=== PATIENT | female | born 1965 | race Caucasian/White ===

== ENCOUNTER 2019-02-23 14:26 | Outpatient (CLI) | payer BC, SELFPAY ==
[2019-02-23 15:17] LABS: Abs Immature Grans 0.01 k/cumm (0.0-0.09); Absolute Basophil Count 0.03 k/cumm (0.0-0.2); Absolute Eosinophil Count 0.11 k/cumm (0.0-0.7); Absolute Neutrophil Count 3.55 k/cumm (1.2-6.7); Basophils % 0.5; Eosinophils % 1.7; HCT 37.8 % (36.0-46.0); Immature Grans % 0.2; Lymphocytes % 37.9; Mean Corp. HGB Concentration 34.4 g/dL (32.0-36.0); Mean Corpuscular Hemoglobin 31.9 pg (27.0-33.0); Mean Corpuscular Volume 92.9 fL (80-95); Mean Platelet Volume 9.9 fL (8.0-11.0); Monocytes % 6.1; Neutrophils % 53.6; Platelet Count 257 x1000/uL (130-400); RBC 4.07 m/cumm (4.00-5.20); RBC Distribution Width 11.9 % (11.7-14.6)
[2019-02-23 16:12] LABS: ALT 21 U/L (14-59); AST 25 U/L (15-37); Albumin 3.9 g/dL (3.4-5.0); Alkaline Phosphatase 40 U/L (46-116); Anion Gap 8.1 mmol/L (3-11); BUN 19 mg/dL (7-18); Bilirubin, Total 0.8 mg/dL (0.2-1.0); C-Reactive Protein < 0.05 mg/dL (0.0-0.3); CO2 27.9 mmol/L (21.0-32.0); CREATININE 0.69 mg/dL (0.55-1.02); Calcium 8.8 mg/dL (8.5-10.1); Chloride 107 mmol/L (98-107); Glucose 86 mg/dL (70-100); Sodium 143 mmol/L (136-145); TSH 1.92 uIU/mL (0.36-3.74); Total Protein 6.6 g/dL (6.4-8.2)
[2019-02-23 16:36] LABS: ESR 7 mm/hr (0-30)
== END 2019-02-23 14:46 ==
PROVIDERS: PCP Emergency Medicine; Visit Provider Emergency Medicine
DX: E03.9 Hypothyroidism, unspecified (principal); R53.83 Other fatigue
CPT/HCPCS: 36415; 80053; 85652; 84443; 85025; 86140

== ENCOUNTER 2020-01-21 08:15 | Outpatient (CLI) | payer BC, SELFPAY ==
[2020-01-24 12:34] LABS: Patient Race White; SARS-CoV-2 Specimen Source Nasopharynx
[2020-01-24 12:35] LABS: Method Summary See Comments; SARS-CoV-2 RNA Undetected (Undetected)
== END 2020-01-21 08:35 ==
PROVIDERS: PCP Emergency Medicine; Visit Provider Emergency Medicine
DX: Z11.59 Encounter for screening for other viral diseases (principal)
CPT/HCPCS: U0003

== ENCOUNTER 2020-02-06 04:15 | Outpatient (CLI) | payer BC, SELFPAY ==
[2020-02-06 11:35] LABS: Abs Immature Grans 0.01 10^3/uL (0.0-0.06); Absolute Basophil Count 0.06 10^3/uL (0.0-0.2); Absolute Eosinophil Count 0.13 10^3/uL (0.0-0.7); Absolute Lymphocyte Count 2.11 10^3/uL (1.2-3.4); Absolute Monocyte Count 0.37 10^3/uL (0.1-0.8); Absolute Neutrophil Count 2.14 10^3/uL (1.2-6.7); Basophils % 1.2; Eosinophils % 2.7; HGB 13.3 g/dL (11.2-15.7); Immature Grans % 0.2; Lymphocytes % 43.8; MCH 30.8 pg (27.0-33.0); MCHC 33.3 % (32.0-36.0); MCV 92.6 fL (80-95); MPV 9.9 fL (8.0-11.0); Monocytes % 7.7; Neutrophils % 44.4; Nucleated RBC 0 %; Platelet Count 258 10^3/uL (130-400); RBC 4.32 10^6/uL (3.93-5.22); RDW-SD 41.1 fL; WBC 4.82 10^3/uL (4.4-10.8)
[2020-02-06 12:12] LABS: ALT 20 U/L (14-59); AST 16 U/L (15-37); Albumin 3.6 g/dL (3.4-5.0); Alkaline Phosphatase 44 U/L (46-116); Anion Gap 4.4 mmol/L (3-11); BUN 16 mg/dL (7-18); Bilirubin, Total 0.7 mg/dL (0.2-1.0); CO2 30.6 mmol/L (21.0-32.0); CREATININE 0.73 mg/dL (0.55-1.02); Calcium 8.8 mg/dL (8.5-10.1); Chloride 107 mmol/L (98-107); Glucose 85 mg/dL (74-106); Potassium 4.5 mmol/L (3.5-5.1); Sodium 142 mmol/L (136-145); TSH 0.78 uIU/mL (0.36-3.74); Total Protein 6.3 g/dL (6.4-8.2)
[2020-02-06 12:15] LABS: C-Reactive Protein < 0.05 mg/dL (0.0-0.3)
[2020-02-06 12:57] LABS: ESR 6 mm/hr (0-30)
== END 2020-02-06 04:35 ==
PROVIDERS: PCP Emergency Medicine; Visit Provider Emergency Medicine
DX: E03.9 Hypothyroidism, unspecified (principal); R53.83 Other fatigue
CPT/HCPCS: 36415; 80053; 85652; 84443; 85025; 86140

== ENCOUNTER 2022-03-01 03:07 | Outpatient (CLI) | payer BC, SELFPAY ==
[2022-03-01 11:45] LABS: Abs Immature Grans 0.02 10^3/uL (0.0-0.06); Absolute Basophil Count 0.05 10^3/uL (0.0-0.2); Absolute Eosinophil Count 0.13 10^3/uL (0.0-0.7); Absolute Lymphocyte Count 2.31 10^3/uL (1.2-3.4); Absolute Monocyte Count 0.43 10^3/uL (0.1-0.8); Absolute Neutrophil Count 3.91 10^3/uL (1.2-6.7); Basophils % 0.7; Eosinophils % 1.9; HCT 39.3 % (36.0-46.0); HGB 12.8 g/dL (11.2-15.7); Immature Grans % 0.3; Lymphocytes % 33.7; MCHC 32.6 % (32.0-36.0); MCV 95 fL (80-95); MPV 9.2 fL (8.0-11.0); Monocytes % 6.3; Neutrophils % 57.1; Platelet Count 227 10^3/uL (130-400); RBC 4.13 10^6/uL (3.93-5.22); RDW 12.2 % (11.7-14.6); RDW-SD 42.5 fL; WBC 6.85 10^3/uL (4.4-10.8)
[2022-03-01 12:22] LABS: Hemoglobin A1C 5.5 % (<5.7)
[2022-03-01 12:23] LABS: Iron 135 ug/dL (50-170); Total Iron Binding Capacity 340 ug/dL (250-450)
[2022-03-01 12:37] LABS: Calculated LDL 119 mg/dL (<100); Cholesterol 209 mg/dL (<200); Ferritin 113 ng/mL (8-252); HDL Cholesterol 78 mg/dL (40-60); TSH (W/Ref FT4) 2.44 uIU/mL (0.36-3.74); Triglyceride 64 mg/dL (<150)
[2022-03-02 10:24] LABS: Transferrin 272 mg/dL (201-352)
== END 2022-03-01 03:08 | disposition home or self-care (01) ==
PROVIDERS: PCP Nurse Practitioner Family; Visit Provider Nurse Practitioner Family
DX: R53.83 Other fatigue (principal); Z13.220 Encounter for screening for lipoid disorders; Z13.1 Encounter for screening for diabetes mellitus
CPT/HCPCS: 36415; 80061; 82728; 83036; 83540; 83550; 84443; 84466; 85025

== ENCOUNTER 2022-12-15 02:25 | Outpatient (CLI) | payer BC, SELFPAY ==
--- NOTE | 2022-12-15 06:00 | DI.RAD_ITS ---
Exam(s) XR LUMBAR SPINE COMPLETE EXAM: XR LUMBAR SPINE COMPLETE CLINICAL HISTORY: acute low back pain,m54.50. TECHNIQUE: 2D digital imaging was performed of the lumbar spine. Five images were obtained. AP, la teral, right oblique, left oblique and L5-S1 spot views were obtained. COMPARISON: No priors for comparison. FINDINGS: BONES: No fracture or destructive lesion. Small endplate osteophytes are seen at several levels. No facet hypertrophy identified. DISKS: There is disc space narrowing at L2-3 and L5-S1. ALIGNMENT: Lumbar spinal alignment is within normal limits. No spondylolysis or spondylolisthesis. SOFT TISSUE: There is a 9 mm calcification adjacent to the right L3 transverse process. IMPRESSION: 1. Mild degenerative changes in the lumbar spine. 2. 9 mm calcification adjacent to the right L3 transverse process. This is nonspecific. A right ure teral stone may appear at this location. Please correlate clinically. If there is continued clinica l concern a CT scan of the abdomen and pelvis may be obtained for further evaluation. DATA REPOSITORY: RADIATION DOSE DELIVERED:
== END 2022-12-15 02:45 ==
LOC: DI 02:25
PROVIDERS: PCP Nurse Practitioner Family; Visit Provider Nurse Practitioner Family
DX: M54.50 Low back pain, unspecified (principal); M51.36 Other intervertebral disc degeneration, lumbar region
CPT/HCPCS: 72110

== ENCOUNTER → 2023-02-03 01:19 | Outpatient (CLI) | payer BC, SELFPAY ==
--- NOTE | 2023-02-03 10:30 | DI.DEXA_ITS ---
Exam(s) XR DEXA BONE DENSITY W/WO BRIANNA EXAM: XR DEXA BONE DENSITY W/WO BRIANNA CLINICAL HISTORY: family history of osteporosis,SCREENING FOR OSTEOPOROSIS IN POSTMENOPAUSAL TECHNIQUE: Routine DEXA evaluation of the lumbar spine, hip, or forearm. COMPARISON: No exams were available for comparison FINDINGS: Performed on a Hologic unit. Lateral image: No compression fracture evident. Lumbar Spine total T-score: -0.4 Hip total T-score:-0.6 Independent reading at the level of the femoral neck yields T-score of -1.2 Forearm total T-score: -0.9 IMPRESSION: Bone mineral density measures in the normal range for lumbar spine and forearm but is in the osteopen ia range for the femoral neck.. Fracture risk is low-moderate Note: Any spine fracture indicates 5x risk for subsequent spine fracture and 2x risk for subsequent h ip fracture. World Health Organization criteria for BMD interpretation classify patients: Normal...... T- Score at or above -1.0 Osteopenic... T- Score between -1.0 and -2.5 Osteoporosis... T-Score at or below -2.5
== END ==
PROVIDERS: PCP Nurse Practitioner Family; Visit Provider Nurse Practitioner Family
DX: Z13.820 Encounter for screening for osteoporosis (principal); Z82.62 Family history of osteoporosis; M81.0 Age-related osteoporosis without current pathological fracture
CPT/HCPCS: 77080

== ENCOUNTER 2023-06-15 03:04 | Outpatient (CLI) | payer BC, SELFPAY ==
[2023-06-15 07:45] LABS: Calculated LDL 142 mg/dL (<100); Cholesterol 230 mg/dL (<200); HDL Cholesterol 74 mg/dL (40-60); Triglyceride 74 mg/dL (<150)
[2023-06-15 07:48] LABS: Hemoglobin A1C 5.3 % (<5.7)
== END 2023-06-15 03:05 | disposition home or self-care (01) ==
LOC: LBO 03:04
PROVIDERS: PCP Nurse Practitioner Family; Visit Provider Nurse Practitioner Family
DX: Z13.1 Encounter for screening for diabetes mellitus (principal); Z13.220 Encounter for screening for lipoid disorders
CPT/HCPCS: 36415; 80061; 83036

== ENCOUNTER 2023-08-04 03:05 | Outpatient (CLI) | payer BC, SELFPAY ==
[2023-08-04 22:16] LABS: FSH 96.7 mIU/mL (See Note); Progesterone <0.2 ng/mL (See Table)
[2023-08-05 08:40] LABS: Homocysteine 7.8 umol/L (5.0-13.9)
[2023-08-08 09:29] LABS: Estradiol, Mass Spectrometry <10 pg/mL; Estrone <10 pg/mL
[2023-08-08 12:56] LABS: Testosterone, Total 7.3 ng/dL (8-60)
== END 2023-08-04 03:06 | disposition home or self-care (01) ==
LOC: LBO 03:05
PROVIDERS: PCP Nurse Practitioner Family; Visit Provider Nurse Practitioner Family
DX: R53.83 Other fatigue (principal); R14.0 Abdominal distension (gaseous); Z78.0 Asymptomatic menopausal state; G89.29 Other chronic pain
CPT/HCPCS: 36415; 83090; 84403; 82670; 82679; 83001; 84144

== ENCOUNTER 2023-08-16 05:20 | Outpatient (CLI) | payer BC, SELFPAY ==
[2023-08-18 13:05] LABS: IgA 267 mg/dL (85-499); Interpretation (See Note); Tissue Transglutaminase IgA <4.0 CU (<20.0)
== END 2023-08-16 05:21 | disposition home or self-care (01) ==
PROVIDERS: PCP Nurse Practitioner Family; Visit Provider Nurse Practitioner Family
DX: R10.13 Epigastric pain (principal); R53.83 Other fatigue
CPT/HCPCS: 36415; 82784; 83516

== ENCOUNTER 2024-06-08 10:39 | Outpatient (CLI) | payer BC, SELFPAY ==
[2024-06-08 12:39] LABS: Calculated LDL 151 mg/dL (<100); Cholesterol 252 mg/dL (<200); HDL Cholesterol 83 mg/dL (40-60); Triglyceride 91 mg/dL (<150)
[2024-06-08 14:15] LABS: Lab Add On Test DONE
[2024-06-08 14:23] LABS: HCT 42.7 % (36.0-46.0); HGB 14.3 g/dL (11.2-15.7); MCH 31.3 pg (27.0-33.0); MCHC 33.5 % (32.0-36.0); MCV 93 fL (80-95); MPV 10.1 fL (8.0-11.0); Platelet Count 321 10^3/uL (130-400); RBC 4.57 10^6/uL (3.93-5.22); RDW 11.9 % (11.7-14.6); RDW-SD 41.1 fL; WBC 6.54 10^3/uL (4.4-10.8)
== END 2024-06-08 10:40 | disposition home or self-care (01) ==
LOC: LOS 10:39
PROVIDERS: PCP Nurse Practitioner Family; Referring Provider Nurse Practitioner Family; Visit Provider Nurse Practitioner Family
DX: Z13.220 Encounter for screening for lipoid disorders (principal); Z13.1 Encounter for screening for diabetes mellitus; Z78.0 Asymptomatic menopausal state; R53.83 Other fatigue
CPT/HCPCS: 36415; 80061; 85027; 83036

== ENCOUNTER 2024-09-06 10:13 | Outpatient (CLI) | payer BC, SELFPAY ==
--- NOTE | 2024-09-06 15:00 | DI.RAD_ITS ---
Exam(s) XR CHEST 2V PA LATERAL EXAM: XR CHEST 2V PA LATERAL CLINICAL HISTORY: continued SOB, R06.02; cough, R05.9 TECHNIQUE: 2D digital imaging was performed. Two views. COMPARISON: CR CHEST 2 VIEWS PA,LAT from 01/24/2014 FINDINGS: HEART: Normal size. Aorta: Not dilated. PULMONARY VASCULATURE: Normal. MEDIASTINUM: Unremarkable. LUNGS: Clear. PLEURAL SPACE: No pleural effusion or pneumothorax. BONE:Unremarkable for age. SOFT TISSUES: Unremarkable. IMPRESSION: No acute abnormality. DATA REPOSITORY: RADIATION DOSE DELIVERED:
== END 2024-09-06 10:33 ==
LOC: DI 01-17 10:13
PROVIDERS: PCP Nurse Practitioner Family; Visit Provider Nurse Practitioner Family
DX: R06.02 Shortness of breath (principal); R05.9 Cough, unspecified
CPT/HCPCS: 71046

== ENCOUNTER 2025-03-08 09:13 | Outpatient (CLI) | payer BC, SELFPAY ==
--- NOTE | 2025-03-08 08:15 | DI.RAD_ITS ---
Exam(s) XR KNEE LT 3V AP,LAT,KALYAN EXAM: XR KNEE LT 3V AP,LAT,KALYAN CLINICAL HISTORY: lt knee pain, no known injury M25.561. TECHNIQUE: 2D digital imaging was performed. Three views. COMPARISON: No exams were available for comparison FINDINGS: BONES: No acute fracture is present. No bony destructive lesion is seen. JOINTS: The joint spaces are maintained. No significant degenerative changes. The knee is normally aligned. No joint effusion is seen. SOFT TISSUE: Normal. IMPRESSION: Normal radiographs of the left knee. DATA REPOSITORY: RADIATION DOSE DELIVERED:
--- NOTE | 2025-03-08 08:15 | DI.US_ITS ---
Exam(s) US LOWER EXTREMITY VENOUS LT EXAM: US LOWER EXTREMITY VENOUS LT CLINICAL HISTORY: Left calf pain, on HRT, has traveled M79.89 ST DISORDER M79.662 PAIN LT LEG. TECHNIQUE: Lower extremity venous ultrasound performed using grayscale, color- flow, and spectral Doppler analysis. COMPARISON: CR XR KNEE LT 3V AP,LAT,KALYAN from 03/08/2025 FINDINGS: The common femoral, femoral and popliteal veins demonstrate normal compressibility, augmentation, and color Doppler. The posterior tibial and peroneal veins are patent. No saphenous vein thrombosis or other superficial venous thrombosis is seen. There is a bilobed Bell's cyst. The more superior portion measures 9 x 17 x 3.9 cm. The more medial portion measures 2.6 x 1.3 x 2.4 cm. IMPRESSION: Small bilobed Bell's cyst. No evidence of DVT. DATA REPOSITORY:
== END 2025-03-08 09:33 ==
LOC: DI 09:13
PROVIDERS: PCP Nurse Practitioner Family; Visit Provider Nurse Practitioner Family
DX: M25.561 Pain in right knee (principal); M79.89 Other specified soft tissue disorders; M79.662 Pain in left lower leg
CPT/HCPCS: 73562; 93971

== ENCOUNTER → 2025-03-25 08:17 | Outpatient (CLI) | payer BC, SELFPAY ==
--- NOTE | 2025-03-25 08:15 | DI.MRI_ITS ---
Exam(s) MR LOWER JOINT LT WO EXAM: MR LOWER JOINT LT WO CLINICAL HISTORY: left lower extremity pain, pain lt calf, m79.662,m25.562 TECHNIQUE: Multiplanar multisequence MRI of the knee was performed. COMPARISON: CR XR KNEE LT 3V AP,LAT,KALYAN from 03/08/2025 FINDINGS: EFFUSION: There is a moderate size knee joint effusion with some synovial thickening. There is also a septated and partially ruptured bell cyst in the medial popliteal fossa which measures 6 cm craniocaudal by 1.6 cm AP by 1.7 cm wide. There is thickened synovium and at least 1 small loose body measuring 3 millimeters within the Bell cyst. Some fluid is seen below the Bell cyst along the medial gastrocnemius surface. MARROW:There is no evidence of fracture, prominent bone contusion, nor osteochondral defects.. There are no significant osseous lesions. PATELLOFEMORAL COMPARTMENT: The quadriceps tendon is intact. The patellar ligament is intact. There is subcutaneous edema anterior to the lower most part of the patellar tendon and anterior tibial tubercle. There is, however, no abnormal signal within the patellar ligament at this level. There is no significant thinning of the retropatellar cartilage. No evidence of fissure nor significant chondral defect. No osteochondral defect at this level.There is no intraosseous signal to suggest recent patellar dislocation. Lateral patellar retinaculum appears unremarkable. There is some thinning of the inferior aspect of the medial patellar retinaculum consistent with partial tearing. CRUCIATE LIGAMENTS: The anterior cruciate ligament is intact.The posterior cruciate ligament is intact. MEDIAL COMPARTMENT/MEDIAL MENISCUS: There is a flap tear in the posterior horn of the medial meniscus at its mid 3rd.The meniscal root appears intact. There is no significant meniscal extrusion. The anterior horn appears intact.. There is mild subarticular signal abnormality in the epiphysis of the medial tibial plateau located under the region of posterior meniscal tearing. There is no abnormal intraosseous signal in the in the anterior aspect of the medial tibial plateau. There is some signal abnormality and thinning of the articular cartilage over the medial 3rd of the main weight-bearing surface of the medial femoral condyle. There are no osteophytes medial compartment. MEDIAL COLLATERAL LIGAMENT: Sprain signal. No high-grade tear. LATERAL COMPARTMENT/LATERAL MENISCUS: There is no evidence of lateral meniscal tear.There are no chondral defects, osteochondral defects, subarticular marrow edema, nor osteophytes evident. ILIOTIBIAL BAND: Intact LATERAL COLLATERAL LIGAMENT COMPLEX: The fibular collateral ligament is intact. The biceps femoris tendon is intact.Popliteus muscle and tendon are intact. IMPRESSION: 1. There is a mild complex tear of the posterior horn of the medial meniscus. The no flipped meniscal fragments. No meniscal extrusion nor intrusion. There are mild degenerative changes in the articular cartilage over the inner aspect of the medial femoral condyle. The anterior horn of the medial meniscus is intact. There is some evidence of sprain of the MCL. There is also some signal abnormality in the anterior inferior aspect of the medial patellar retinaculum consistent with partial tearing. 2. There are no tears of the lateral meniscus nor degenerative changes in the lateral compartment. 3. There are no cruciate ligament tears nor evidence of tear of the iliotibial band nor of the lateral collateral ligament complex components. 4. Moderate size joint effusion, synovial thickening, and septated 6 cm length partially ruptured Bell's cyst noted. DATA REPOSITORY:
== END ==
LOC: DI 08:18
PROVIDERS: PCP Nurse Practitioner Family; Visit Provider Nurse Practitioner Family
DX: M79.662 Pain in left lower leg (principal); M25.562 Pain in left knee; S83.231A Complex tear of medial meniscus, current injury, right knee, initial encounter; X58.XXXA Exposure to other specified factors, initial encounter
CPT/HCPCS: 73721